=== PATIENT | male | born 1935 | race Caucasian/White ===

== ENCOUNTER 2019-03-11 15:32 | Emergency (ER) | payer OTHER ==
[~2019-03-11] VITALS: Ht 177.8 cm; Wt 86.2 kg
[~2019-03-11 15:32] MED LIST: ALLEGRA180 MG PO; ALLOPURINOL 10100 M1 PO; AMITRIPTYLINE H10 M3 PO; ASPIR 8181 MG PO; ASPIR-LOW81 MG PO; ATIVAN0.5 MG PO; ATIVAN1 MG PO; B-12500 MCG PO; BYSTOLIC 5 MG5 M1 PO; CITRATE OF MAG296 ML PO; CLONAZEPAM 0.50.5 M1 PO; CLONIDINE0.1 PO; CO-ENZYME Q-1010 MG PO; COLACE100 MG PO; COQ-10100 MG PO; EXCEDRIN BACK1 EACH PO; FAMCYCLOVIR 50500 M1 PO; GABAPENTIN 100100 MG PO; HYDROCODONE-AP1 EAC6 PO; IRON325 PO; KEPPRA 500 MG500 M1 PO; KEPPRA1000 MG PO; KEPPRA250 MG PO; LOPRESSOR 50 MG50 M1 PO; LYRICA 50 MG50 MG PO; MIRALAX17 GM PO; MOBIC7.5 MG PO; NAMENDA 10 MG T10 MG PO; NEURONTIN 300300 M1 PO; NITROGLYCERIN0.4 MG SUBLING; NORVASC 5 MG TAB5 MG PO; NORVASC10 MG PO; NORVASC5 MG PO; OCUVITE TABLET1 EAC1 PO; ONDANSETRON HCL4 M2 PO; PERCOCET PO; POTASSIUM20 PO; PRAVACHOL20 MG PO; PREDNISONE10 MG PO; PROTONIX40 M4 PO; REMERON15 M1 PO; SEROQUEL 25 MG25 M1 PO; SEROQUEL 50 MG50 MG PO; STOOL SOFTENER240 MG PO; TRAMADOL 50 MG50 MG PO; TRAZODONE HCL50 MG PO; TYLENOL325 MG PO; VITAMIN B-1100 M1 PO; VITAMIN B-6100 MG PO; VITAMIN B122500 MCG PO; VITAMIN D1000 UNI1 PO; VITAMIN D3400 UNIT PO
--- NOTE | 2019-03-11 15:53 | EKG ---
[place] [address] [address] [facility] [place] [address] ELECTROCARDIOGRAM REPORT Name: CINDY VALENCIA V Room #: [facility]#: [id number] ������������������ Admission: ������������������ Attend Phys: Discharge: ������������������ Date of : 39 Report #: [id number] ����������������������������������������������������������������� [id number] THIS REPORT FOR: //name// [facility] ED Test Date: 2019-03-11 Test Time: 15:39:36 Pat Name: CINDY VALENCIA Department: Room: Gender: M Commercial Property Manager: ELLIOT : 1935 Requested By: Celia Ghotra Order Number: [id number] MD: Tho Chavez Measurements Intervals [place]co Rate: 51 P: CT: QRS: -36 QRSD: 100 T: -6 QT: 434 QTc: 400 Interpretive Statements Atrial fibrillation Inferior infarct, old Poor R wave progression Compared to ECG 05/16/2016 07:28:34 Ventricular premature complex(es) no longer present Electronically Signed On 03-11-2019 15:53:06 CDT by Tho Chavez [email or web address] ��������������������������������������������� <ELECTRONICALLY SIGNED> ���������������������������������������� By: Tho Chavez MD, [facility] ��������������������������������������������� 03/11/19 1553 [id number] 1539 Tho Chavez MD, FACC /EPI
[2019-03-11 15:57] LABS: ABSOLUTE NEUTROPHILS 3.4 thou/uL (1.4-8.2); BASOPHILS 0.5 % (0.0-2.0); EOSINOPHILS 1.7 % (0.0-3.0); HEMATOCRIT 46.2 % (42.0-52.0); HEMOGLOBIN 15.4 gm/dL (14.0-18.0); LYMPHOCYTES 34.1 % (24.0-44.0); MCH 31.1 pg (26.0-34.0); MCHC 33.2 g/dL (28.0-37.0); MCV 93.7 fL (80.0-100.0); MONOCYTES 3.6 % (1.0-8.0); PLATELET COUNT 127 thou/uL (150-400); POLYS 60.1 % (36.0-66.0); RBC 4.93 mil/uL (4.50-6.00); RDW 14.5 % (10.5-14.5); WBC 5.6 thou/uL (4.0-11.0)
[2019-03-11 16:12] LABS: ANION GAP 3 mmol/L (7-16); BUN 18 mg/dL (7-18); CALCIUM 9.4 mg/dL (8.5-10.1); CHLORIDE 105 mmol/L (98-107); CO2 34 mmol/L (21-32); CREATININE 1.3 mg/dL (0.7-1.3); GLUCOSE 99 mg/dL (74-106); POTASSIUM 4.3 mmol/L (3.5-5.1); SODIUM 142 mmol/L (136-145)
[2019-03-11 16:22] LABS: ALBUMIN 4.1 g/dL (3.4-5.0); MAGNESIUM 1.7 mg/dL (1.8-2.4); SGOT 26 U/L (15-37); SGPT 21 U/L (30-65); TOTAL BILIRUBIN 1.7 mg/dL (<0.1-1.0); TOTAL PROTEIN 6.7 g/dL (6.4-8.2); TROPONIN-I <0.06 ng/mL (<0.06)
[2019-03-11 16:31] LABS: URINE BILIRUBIN NEGATIVE (Negative); URINE BLOOD NEGATIVE (Negative); URINE CLARITY CLEAR; URINE COLOR YELLOW; URINE GLUCOSE-RANDOM* NEGATIVE (Negative); URINE KETONES NEGATIVE (Negative); URINE LEUKOCYTES-REFLEX NEGATIVE (Negative); URINE NITRITE-REFLEX NEGATIVE (Negative); URINE PROTEIN (DIPSTICK) TRACE (Negative); URINE SPECIFIC GRAVITY 1.025 (1.005-1.035); URINE UROBILINOGEN 0.2 E.U./dl (0.2-1.0)
[2019-03-11 17:39] VITALS: BP 124/89
[2019-03-11 20:51] VITALS: BP 145/89
--- NOTE | 2019-03-18 14:06 | HC ---
[facility] [place] [address] CONSULTATION Name: CINDY VALENCIA JR [id number] Admission: 03/11/19 ������������������ Attend Phys: Discharge: 03/11/19 ������������������ Date of : 39 Report #: [id number] THIS REPORT FOR: //name// CC: Celia Ghotra NO PCP Jose Oneil DATE OF SERVICE: 03/11/2019 HISTORY OF PRESENT ILLNESS: This is an 83-year-old male patient who was seen in the Emergency Room. The patient was discussed with the nurse practitioner from Emergency Room, who saw this patient and I called Dr. Oneil and talked to him on the phone. The patient does not provide any history; only the does. Neurological consultation was requested because the patient was feeling weak, but when history was taken from the , it looks like in the last 2 days, he has lost all his vision. On my examination, he was not able to see anything. He has also developed visual hallucinations. Apparently, he has a history of stroke as well as what she indicates brain bleed, but visual disturbance is new according to the and it has happened in the last 2 days. I reviewed the patient's record and this patient was seen by Dr. Escudero. At that time, he was seen by her for altered mental status. This patient had an MRI as far back as 2009 and has extensive atrophy. In the last MRI of 2015, no acute stroke was seen, but multiple small punctate hemorrhages were seen. In 2012, he had a sed rate and it was 53. In 2009, it was 113 at one time, but another time in 2012, it was only 10. I do not know whether the patient was septic when it was high. He is not complaining of any headache. REVIEW OF SYSTEMS: Positive for dementia and this patient has been seen by multiple physicians over a period of time. He has a history of atrial fibrillation according to some of the record, has liver function elevation. He used to drink alcohol in large amount, but has not done that for 4-5 years. This is the best 14-point review of system I can get from the patient's and the record. PAST MEDICAL HISTORY: Positive for dementia and strokes and intracerebral hemorrhage. FAMILY HISTORY: Negative for early age stroke. SOCIAL HISTORY: He used to drink alcohol, but does not do it now. PHYSICAL EXAMINATION: NEUROLOGIC: The patient's examination indicates he is alert. He is responsive. Sometimes, he can follow commands. I spent a considerable amount of time to see if he can see anything. He could not count the fingers properly with either eye in any visual monsivais. The best I can tell, he does not have any vision. He [facility] [address] [place] [address] CONSULTATION Name: CINDY VALENCIA JR Room #: DEP [facility] Clark#: [id number] Admission: 03/11/19 ������������������ Attend Phys: Discharge: 03/11/19 ������������������ Date of : 39 Report #: [id number] moves all 4 extremities. He does not cooperate very well with position sense. He does not have any meningeal sign. LUNGS: No respiratory difficulty. CARDIAC EXAMINATION: Shows regular heart. SKIN: No edema, cyanosis or jaundice. VITAL SIGNS: Blood pressure is 143/86, respirations are 14, pulse is 42 and temperature is 97.9. LABORATORY DATA: CT scan indicates that he has an occipital lobe stroke, which is old, but has happened since 2016. IMPRESSION: This is a complicated case. 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 I asked her that history multiple times and that is the history she confirmed. This patient needs to be worked up for multiple things. The first thing he needs is a good ophthalmology examination to make sure that he does not have any pathology, which appeared 2 days ago and has made him blind in 2 days. He does have occipital lobe CVA that would have caused him hemianopsia, but the says the symptoms are for 2 days only. On my examination, he could not see anything in any field, which will be unusual. If ophthalmology pathology is excluded, then we need to work him up. He will need a stat sed rate to exclude the possibility of temporal arteritis and MRI of the brain and MRA of the head and neck. He will also need an echocardiogram to look for any thrombus there. Then a difficult question of anticoagulation need to be decided. He does not appear to be a good candidate for anticoagulation in spite of his atrial fibrillation, but that question needs to be readdressed depending upon his MRI. Other problem is that we do not have an sole conditioner who comes here. Because of that, it was my recommendation that he be transferred to a facility where ophthalmologists are available. Then Ophthalmology should do an ophthalmology examination to make sure there is no pathology there and if there is no ophthalmology pathology which can explain his symptom, then we need to look at his MRI and MRA to decide about further management. I talked to Dr. Oneil as well as a nurse practitioner and they are going to emergently transfer him to some another facility where both Neurology and Ophthalmology service is available. Thank you very much for this referral. ��������������������������������������������� <ELECTRONICALLY SIGNED> ���������������������������������������� By: Aldair Lloyd MD ��������������������������������������������� 03/18/19 1406 [id number] MD angelique Ballesteros
== END 2019-03-11 20:53 | disposition short-term general hospital (02) ==
LOC: ER 15:32 → EROBS 17:30 → ER 17:30
PROVIDERS: Nurse Practitioner Family
DX: R44.1 Visual hallucinations (principal); R53.1 Weakness; I10 Essential (primary) hypertension; F03.90 Unspecified dementia, unspecified severity, without behavioral disturbance, psychotic disturbance, mood disturbance, and anxiety; Z87.891 Personal history of nicotine dependence; Z87.442 Personal history of urinary calculi; Z86.73 Personal history of transient ischemic attack (TIA), and cerebral infarction without residual deficits